=== PATIENT | male | born 1955 | race Two or more races ===

== ENCOUNTER → 2022-03-16 | Emergency (ER) | payer OTHER | END | disposition home or self-care (01) | LOC: ER 16:21 | DX: U07.1 COVID-19 (principal); I10 Essential (primary) hypertension; E11.9 Type 2 diabetes mellitus without complications; Z79.84 Long term (current) use of oral hypoglycemic drugs; Z88.2 Allergy status to sulfonamides ==

== ENCOUNTER 2022-03-19 12:00 | Outpatient (CLI) | payer OTHER | END 2022-03-19 12:30 | disposition home or self-care (01) | LOC: ASH CLINIC 12:00 | PROVIDERS: ATTEND General Practice | DX: U07.1 COVID-19 (principal) ==